=== PATIENT | female | born 1995 | race Caucasian/White ===

== ENCOUNTER 2020-12-08 16:34 | Emergency (ER) | payer OTHER, SELFPAY ==
[2020-12-08 16:39] VITALS: BP 119/56; PULSE 65; RESP 14; TEMP 36.9; O2SAT 100
--- NOTE | 2020-12-08 16:56 | ED.DENTAL ---
HPI - Dental/Oral General Chief complaint: Dental/Oral Stated complaint: tooth pain History of Present Illness HPI Narrative: This a 24-year-old that comes in complaining of back wisdom tooth pain states that it hurts and swollen and her jaw is starting to hurt pain is been going on for the past couple of days and ibuprofen has not working. Related Data Home Medications Medication Instructions Recorded Confirmed citalopram 20 mg PO DAILY 12/08/20 12/08/20 Allergies Allergy/AdvReac Type Severity Reaction Status Date / Time No Known Allergies Allergy Verified 12/08/20 16:46 Review of Systems Review of Systems: Narrative: CONSTITUTIONAL: Denies fever, chills, or sweats. EYES: Denies visual changes, redness, or discharge. ENT: Denies rhinorrhea, congestion, sore throat, or otalgia. Left-sided wisdom tooth pain CARDIOVASCULAR:Denies chest pain, palpitations, or edema. RESPIRATORY: Denies cough or dyspnea. GASTROINTESTINAL: Denies abdominal pain, nausea, vomiting, or diarrhea. GENITOURINARY: Denies dysuria or hematuria. SKIN:[Denies rash or itching. MUSCULOSKELETAL:Denies back pain, joint pain, or myalgia. NEUROLOGIC: Denies headache, numbness, or weakness. PSYCHIATRIC:Denies anxiety or depression PMFSH Comments At time as signature, I have reviewed and agree with nursing past medical, social, surgical and family history. Please see nursing chart for further information. There is no relevant family history pertinent to the presenting complaint. Exam Narrative: Exam Narrative: GENERAL:Well-appearing, well-nourished, and in no acute distress. HEAD:Normocephalic, atraumatic. EYES: PERRLA and EOMI. ENT: Nares clear, no rhinorrhea or epistaxis. Mucous membranes moist. Left-sided gum edema slight erythema painful to palpitation NECK: Supple. CHEST: Clear to auscultation. No respiratory distress. HEART: Regular rate and rhythm.. Normal peripheral pulses. ABDOMEN: Soft, nontender, nondistended, normal active bowel sounds. EXTREMITIES: Normal range of motion. No edema. SKIN: Warm, dry, no rash. NEURO: No focal deficits. Alert and oriented x3. Course Vital Signs Vital signs: Vital Signs Temperature 98.5 F 12/08/20 16:39 Pulse Rate 65 12/08/20 16:39 Respiratory Rate 14 06/26/21 16:39 Blood Pressure 119/56 L 12/08/20 16:39 Pulse Oximetry 100 12/08/20 16:39 Temperature 98.5 F 12/08/20 16:39 Pulse Rate 65 12/08/20 16:39 Respiratory Rate 14 12/08/20 16:39 Blood Pressure 119/56 L 12/08/20 16:39 Pulse Oximetry 100 12/08/20 16:39 Discharge Plan Discharge Clinical Impression: Toothache, Tooth erosion, Dental abscess Patient Disposition: Home, Self-Care Condition: Stable Instructions: Antibiotic Form, Dental Abscess (ED), Toothache (ED) Additional Instructions: Dental instructions antibiotic as directed Avoid temperature extremes May apply heat or ice to the face Gentle brushing and flossing Alternate tylenol and ibuprofen as needed for pain Follow-up with the dentist as soon as possible--see the list provided Prescriptions: New amoxicillin 500 mg capsule 500 mg PO Q12H 10 Days Qty: 20 RF: 0 lidocaine HCl [Lidocaine Viscous] 2 % solution 5 ml mucous membrane BID PRN (Reason: pain) Qty: 100 RF: 0 ibuprofen 600 mg tablet 600 mg PO TID PRN (Reason: pain) Qty: 20 RF: 0 No Action citalopram 20 mg Tablet 20 mg PO DAILY RF: 0 Follow-up/Referrals: Flores,Tez Alfaro MD [Primary Care Provider] - Stand Alone Forms: Work/School Release IP Time of Disposition: 17:10
== END 2020-12-08 17:16 | disposition home or self-care (01) ==
PROVIDERS: Emergency Provider Nurse Practitioner Family; PCP Internal Medicine
DX: K04.7 Periapical abscess without sinus (principal); K03.2 Erosion of teeth; F41.9 Anxiety disorder, unspecified
CPT/HCPCS: 99203; G0463